=== PATIENT | female | born 1970 | race Caucasian/White ===

== ENCOUNTER → 2016-06-26 | Outpatient (CLI) | payer BC ==
--- NOTE | 2016-06-26 19:07 | WOUNDPNF ---
DATE 06/26/2016 HISTORY This patient underwent incision and drainage of a very large subcutaneous abscess at the right upper back by Dr. Hairston on 06/12/2016. The patient did initially have a wound VAC applied at this open wound. The insurance company did deny use of the wound VAC for the patient. The wound VAC was therefore removed at the office visit on 06/23/2016. Some Hydrofera Blue Classic Antibacterial Foam dressing was placed into the wound at that time. A 4 inch x 4 inch (10.2 cm x 10.2 cm) piece of Hydrofera Blue Classic Antibacterial Foam dressing was placed in the wound at that time. This was covered with a Mepilex dressing. The patient comes back to [facility] today for a dressing change. PHYSICAL EXAMINATION BACK: The patient does have a large transversely oriented open wound at the right upper back. This wound is 8.6 cm long in a hhryw-pf-axvb direction. The wound is 0.9 cm wide in a bfxhjdpo-jv-atffvpmw direction. The wound is 3.2 cm deep today. There is healthy red granulation tissue at most of the open surface of the wound. There is some white devitalized tissue at about 5% of the wound at the subcutaneous tissue level. VITAL SIGNS: Temperature is 96.7 degrees. Blood pressure is 162/93. Pulse is 85. Weight is 250 pounds. IMPRESSION Large open wound at right upper back following incision and drainage of large subcutaneous abscess on 06/12/2016. TREATMENT The Mepilex and Hydrofera Blue Classic Antibacterial Foam dressings were removed at the open wound at the right upper back today by [facility] nurses. Wound assessment was performed by Dr. Hairston. Some EMLA Cream was applied to the open wound for topical anesthesia. Sharp excisional debridement of nonviable white devitalized tissue at the subcutaneous tissue level was then performed by Dr. Hairston. This was sharp excisional debridement performed by Dr. Hairston with a dermal curette. This sharp excisional debridement with a dermal curette was performed at about 5% of the open surface of the wound. This did result in some bleeding which was controlled with application of direct pressure. Satisfactory hemostasis was achieved. Instructions for ongoing care were then provided by Dr. Hairston. The [facility] nurses then placed more of the Hydrofera Blue Classic Antibacterial Foam dressing into the wound and covered this with some Mepilex dressing. PLAN 1. The patient will return back to [facility] again on 06/30/2016 for another dressing change. 2. The patient will return back to [facility] for another dressing change as well as assessment of the wound again by Dr. Hairston on 07/03/2016. ROSITA
== END ==
LOC: NWCC 14:15
PROVIDERS: ATTEND Surgery
DX: T81.4XXA Infection following a procedure, initial encounter (principal); Y83.8 Other surgical procedures as the cause of abnormal reaction of the patient, or of later complication, without mention of misadventure at the time of the procedure; B96.89 Other specified bacterial agents as the cause of diseases classified elsewhere
CPT/HCPCS: 11042; A6209; A6210

== ENCOUNTER → 2016-06-30 | Outpatient (CLI) | payer BC | LOC: NWCC 09:14 | PROVIDERS: ATTEND Surgery | DX: T81.4XXA Infection following a procedure, initial encounter (principal); Y83.8 Other surgical procedures as the cause of abnormal reaction of the patient, or of later complication, without mention of misadventure at the time of the procedure; B96.89 Other specified bacterial agents as the cause of diseases classified elsewhere; I10 Essential (primary) hypertension ==

== ENCOUNTER → 2016-07-03 | Outpatient (CLI) | payer BC ==
--- NOTE | 2016-07-04 08:25 | WOUNDPNF ---
DATE 07/03/2016 HISTORY This patient underwent incision and drainage of a very large subcutaneous abscess at the right upper back by Dr. Hairston on 06/12/2016. The patient did initially have a wound VAC applied to this open wound. The insurance company did deny use of the wound VAC for the patient. The wound VAC was therefore removed at the [facility] visit on 06/23/2016. The patient has had dressing changes at the wound performed with Hydrofera Blue Classic antibacterial foam dressing covered with Mepilex dressing since 06/23/2016. The patient does come in for a [facility] visit today for a dressing change. PHYSICAL EXAMINATION VITAL SIGNS: Blood pressure is 151/84. Temperature is 97.2 degrees. Pulse is 60. Weight is 250 pounds. BACK: The patient does have a large transversely oriented open wound at the right upper back. This wound is 8.2 cm long in a sxhde-sv-jiet direction. The wound is 1.2 cm wide in a zfhsdvgc-cw-rtncquax direction. The wound is 2.5 cm deep today. There is healthy red granulation tissue at most of the open surface of the wound. There is some white devitalized tissue at about 10% of the subcutaneous tissue level of the open wound. IMPRESSION Large open wound at right upper back following incision and drainage of large subcutaneous abscess on 06/12/2015. TREATMENT The Mepilex and Hydrofera Blue Classic antibacterial foam dressings were removed at the open wound at the right upper back today by [facility] nurses. Wound assessment was performed by Dr. Hairston. Sharp excisional debridement of nonviable white devitalized tissue at the subcutaneous tissue level was then performed by Dr. Hairston. This was sharp excisional debridement performed by Dr. Hairston with a dermal curette. This sharp excisional debridement with a dermal curette was performed at about 10% of the open surface of the wound. This did result in some bleeding which was controlled with application of direct pressure. Satisfactory hemostasis was achieved. Instructions for ongoing care were then provided by Dr. Hairston. The [facility] nurses then placed more of the Hydrofera Blue Classic antibacterial foam dressing into the wound and covered this with some Mepilex dressing. PLAN 1. Continue dressing changes with Hydrofera Blue Classic antibacterial foam dressing covered with Mepilex dressings. We will reapply with the insurance company for use of the wound VAC again after 30 days of treatment with failure of the wound to heal after 30 days. 2. The patient will return back to [facility] again on 07/07/2016 for another dressing change. 3. The patient will then return back to [facility] again for another dressing change as well as assessment of the wound again by Dr. Hairston on 2016. ROSITA
== END ==
LOC: NWCC 14:09
PROVIDERS: ATTEND Surgery
DX: T81.4XXA Infection following a procedure, initial encounter (principal); Y83.8 Other surgical procedures as the cause of abnormal reaction of the patient, or of later complication, without mention of misadventure at the time of the procedure; B96.89 Other specified bacterial agents as the cause of diseases classified elsewhere
CPT/HCPCS: 99213; A6209

== ENCOUNTER → 2016-07-07 | Outpatient (CLI) | payer BC | LOC: NWCC 14:14 | PROVIDERS: ATTEND Surgery | DX: T81.4XXA Infection following a procedure, initial encounter (principal); Y83.8 Other surgical procedures as the cause of abnormal reaction of the patient, or of later complication, without mention of misadventure at the time of the procedure; B96.89 Other specified bacterial agents as the cause of diseases classified elsewhere ==

== ENCOUNTER → 2016-07-10 | Outpatient (CLI) | payer BC ==
[~2016-07-10] MED LIST: SILVER NITRATE APPLICATOR TOP ONE
--- NOTE | 2016-07-10 20:42 | WOUNDPNF ---
DATE 07/10/2016 HISTORY This patient underwent incision and drainage of a very large subcutaneous abscess at the right upper back by Dr. Hairston on 06/12/2016. The patient did initially have a wound VAC applied to this open wound. The insurance company did deny use of the wound VAC for the patient. The wound VAC was therefore removed at [facility] on 06/23/2016. The patient then had dressing changes at the wound performed from 06/23/2016 up until today with Hydrofera Blue Classic Antibacterial Foam Dressing covered with Mepilex dressing. The insurance company has now approved use of the wound VAC so the patient can start using the wound VAC again. PHYSICAL EXAMINATION BACK: The patient does have a transversely oriented open wound at the right upper back. There is no necrotic tissue or purulence at the wound. The patient does have skin growing deep down into the subcutaneous tissue level around all sides of the wound. The skin is growing down deep into the wound well below the level of the surrounding skin on all sides. When the open portion of the wound is measured not including the area where skin is growing down into the subcutaneous tissue level, the wound appears to be 5.8 cm long in a flqel-ma-eqda direction, 0.8 cm wide in a nkwxdzwu-oo-iskptkls direction and 1.8 cm deep. This was prior to any debridement today. IMPRESSION Large open wound at right upper back following incision and drainage of a large subcutaneous abscess on 06/12/2016. TREATMENT The Mepilex and Hydrofera Blue Classic Antibacterial Foam dressings were removed at the open wound at the right upper back today by [facility] nurses. Wound assessment was performed by Dr. Hairston. All of this new epidermis which was growing down over the subcutaneous tissue deep down into the subcutaneous tissue level on all sides of the wound was removed with sharp excisional debridement by Dr. Hairston with a dermal curette. EMLA Cream was first applied to the open wound for a while before this was started to produce topical anesthesia. After this, Dr. Hairston did use a dermal curette to remove all of the skin which was growing down deep into the subcutaneous tissue level on all sides of the wound so this wound will have a normal contour after it heals and not have a deep hole at the back lined with skin. This sharp excisional debridement with a dermal curette did produce quite a bit of bleeding. This bleeding was controlled with chemical cauterization with silver nitrate sticks. Satisfactory hemostasis was achieved. Instructions for ongoing care were then provided by Dr. Hairston. The wound was measured after all this debridement of skin growing down into the subcutaneous tissue level. The measurements after debridement showed that the wound was 7.5 cm long in a wutbh-rs-vxyv direction, 1.5 cm wide in a dydbebmw-ks-fmxhdbao direction and 1.6 cm deep. The [facility] nurses did then apply the wound VAC dressing to this open wound. Negative pressure for a wound VAC was set at 125 mmHg. PLAN 1. Continue negative pressure therapy to open wound at right upper back with a wound VAC. 2. Return back to [facility] [place] for a wound VAC dressing change again on 07/14/2016. 3. The patient will return back to [facility] for another wound VAC dressing change again on 07/17/2016. The wound will be reassessed by Dr. Hairston again at that time. ROSITA
== END ==
LOC: NWCC 14:23
PROVIDERS: ATTEND Surgery
DX: T81.4XXA Infection following a procedure, initial encounter (principal); Y83.8 Other surgical procedures as the cause of abnormal reaction of the patient, or of later complication, without mention of misadventure at the time of the procedure; B96.89 Other specified bacterial agents as the cause of diseases classified elsewhere
CPT/HCPCS: 11042

== ENCOUNTER → 2016-07-14 | Outpatient (CLI) | payer BC | LOC: NWCC 10:48 | PROVIDERS: ATTEND Surgery | DX: T81.4XXA Infection following a procedure, initial encounter (principal); Y83.8 Other surgical procedures as the cause of abnormal reaction of the patient, or of later complication, without mention of misadventure at the time of the procedure; B96.89 Other specified bacterial agents as the cause of diseases classified elsewhere | CPT/HCPCS: 97605 ==

== ENCOUNTER → 2016-07-17 | Outpatient (CLI) | payer BC ==
--- NOTE | 2016-07-18 12:26 | WOUNDPNF ---
DATE 07/17/2016 HISTORY This patient underwent incision and drainage of a very large subcutaneous abscess at the right upper back by Dr. Hairston on 06/12/2016. She has an open wound at the incision and drainage site. The patient has a wound V.A.C. applied to this open wound at this time. PHYSICAL EXAMINATION BACK: The patient does have a transversely oriented open wound at the right upper back. There is no necrotic tissue or purulence at the wound. The patient does have some skin growing down into the subcutaneous tissue level at about 20% of the open surface of the wound. This is skin growing down to the base of the wound deep to the level of the skin at the subcutaneous tissue level. The wound is 6.5 cm long in a taqum-qj-ucvo direction. The wound is 0.8 cm wide in a superior-to -inferior direction. The wound is 1 cm deep today. IMPRESSION Large open wound at right upper back following incision and drainage of a large subcutaneous abscess on 06/12/2016. TREATMENT The wound V.A.C. was removed today from the wound at the right upper back by [facility] nurses. EMLA cream was applied to the open wound for a while to produce topical anesthesia. Wound assessment was then performed by Dr. Hairston. Dr. Hairston did use a dermal curette to remove all the areas where skin was growing deep down into the subcutaneous tissue level. This was sharp excisional debridement with a dermal curette at about 20% of the surface of the open wound today. This sharp excisional debridement did produce bleeding which was controlled by chemical cauterization with silver nitrate sticks. Satisfactory hemostasis was achieved. Instructions for ongoing care were then provided by Dr. Hairston. It was thought that this debridement of the skin which was growing deep down into the subcutaneous tissue level would allow the wound to heal in a way that would produce a normal contour after it heals and prevent the patient from having a deep hole at the back lined with skin. [facility] nurses did apply a new wound V.A.C. dressing to the open wound. Negative pressure for the wound V.A.C. is set at 150 mmHg. PLAN 1. Continue negative pressure therapy to open wound at right upper back with wound V.A.C. at 150 mmHg negative pressure. 2. Return back to [facility] for another wound V.A.C. dressing change again on 07/21/2016. 3. The patient will return back to [facility] for another wound V.A.C. dressing change again on 07/24/2016. The wound will be reassessed by Dr. Hairston again at that time. ROSITA
== END ==
LOC: NWCC 14:13
PROVIDERS: ATTEND Surgery
DX: T81.4XXA Infection following a procedure, initial encounter (principal); Y83.8 Other surgical procedures as the cause of abnormal reaction of the patient, or of later complication, without mention of misadventure at the time of the procedure; B96.89 Other specified bacterial agents as the cause of diseases classified elsewhere
CPT/HCPCS: 11042; 97605

== ENCOUNTER → 2016-07-21 | Outpatient (CLI) | payer BC | LOC: NWCC 08:06 | PROVIDERS: ATTEND Surgery | DX: T81.4XXA Infection following a procedure, initial encounter (principal); B96.89 Other specified bacterial agents as the cause of diseases classified elsewhere; Y83.8 Other surgical procedures as the cause of abnormal reaction of the patient, or of later complication, without mention of misadventure at the time of the procedure | CPT/HCPCS: 97605 ==

== ENCOUNTER → 2016-07-24 | Outpatient (CLI) | payer BC ==
--- NOTE | 2016-07-24 18:42 | WOUNDPNF ---
DATE 07/24/2016 HISTORY This patient underwent incision and drainage of a very large subcutaneous abscess at the right upper back by Dr. Hairston on 06/12/2016. She has an open wound at the incision and drainage site. The patient has a wound V.A.C. applied to this open wound at this time. PHYSICAL EXAMINATION BACK: The patient does have a transversely oriented open wound at the right upper back. There is no necrotic tissue or purulence at the wound. The patient does have some skin growing down into the subcutaneous tissue level at about 5% of the open surface of the wound. The wound is 6 cm long in a zpvht-ot-jrcz direction. The wound is 0.7 cm wide in a obfejzxj-mp-vfqpqwas direction. The wound is 0.7 cm deep today. IMPRESSION Large open wound at right upper back following incision and drainage of a large subcutaneous abscess on 06/12/2016. TREATMENT The wound V.A.C. was removed today from the wound at the right upper back by [facility] nurses. Wound assessment was performed by Dr. Hairston. Dr. Hairston did use a dermal curette to remove the area where skin was growing down into the subcutaneous tissue level. This was sharp excisional debridement with a dermal curette at about 5% of the surface of the open wound today at the subcutaneous tissue level. This was done to remove the new epithelium which was growing down the sides of the wound into the subcutaneous tissue level. This sharp excisional debridement did produce bleeding, which was controlled by chemical cauterization with silver nitrate sticks. Satisfactory hemostasis was achieved. Instructions for ongoing care were provided by Dr. Hairston. It was thought that this debridement of the skin which was growing down into the subcutaneous tissue level would allow the wound to heal in a way that would produce a normal contour after it heals and prevent the patient from having a deep hole at the back lined with skin. [facility] nurses did then apply a new wound V.A.C. dressing to the open wound. Negative pressure for the wound V.A.C. was set at 150 mmHg. PLAN 1. Continue negative-pressure therapy at open wound at right upper back with wound V.A.C. at 150 mmHg negative pressure. 2. Return back to [facility] again for another wound V.A.C. dressing change on 07/28/2016. 3. The patient will return back to [facility] for another wound V.A.C. dressing change again on 07/31/2016. The wound will be reassessed by Dr. Hairston again at that time. ROSITA
== END ==
LOC: NWCC 14:09
PROVIDERS: ATTEND Surgery
DX: T81.4XXA Infection following a procedure, initial encounter (principal); Y83.8 Other surgical procedures as the cause of abnormal reaction of the patient, or of later complication, without mention of misadventure at the time of the procedure; B96.89 Other specified bacterial agents as the cause of diseases classified elsewhere
CPT/HCPCS: 97597

== ENCOUNTER → 2016-07-28 | Outpatient (CLI) | payer BC | LOC: NWCC 08:32 | PROVIDERS: ATTEND Surgery | DX: T81.4XXA Infection following a procedure, initial encounter (principal); Y83.9 Surgical procedure, unspecified as the cause of abnormal reaction of the patient, or of later complication, without mention of misadventure at the time of the procedure; B96.89 Other specified bacterial agents as the cause of diseases classified elsewhere; E11.8 Type 2 diabetes mellitus with unspecified complications | CPT/HCPCS: 97605 ==

== ENCOUNTER → 2016-07-31 | Outpatient (CLI) | payer BC ==
--- NOTE | 2016-08-01 09:48 | WOUNDPNF ---
DATE 07/31/2016 HISTORY This patient underwent incision and drainage of a very large subcutaneous abscess at the right upper back by Dr. Hairston on 06/12/2016. She has an open wound at the incision and drainage site. The patient has had a wound V.A.C. applied to this open wound up until this time. PHYSICAL EXAMINATION VITAL SIGNS: Blood pressure is 176/92. Pulse is 93. Temperature is 96 degrees. Respiratory rate is 18. BACK: The patient does have a transversely oriented open wound at the right upper back. There is no necrotic tissue or purulence at the wound. The patient does have 100% of the open surface of the wound consisting of healthy red granulation tissue. The wound is 4.7 cm long in a itmcx-xl-iqgd direction. The wound is 0.4 cm wide in a mmujcmds-ih-xuswkcmr direction. The wound is 0.3 cm deep today. IMPRESSION Large open wound at right upper back following incision and drainage of a large subcutaneous abscess on 06/12/2016. TREATMENT The wound V.A.C. was removed today at the wound at the right upper back by [facility] nurses. Wound assessment was performed by Dr. Hairston. No debridement of the wound was needed today. Instructions for ongoing care were provided by Dr. Hairston. [facility] nurses did then apply some Jena and Mepilex dressings to the open wound. PLAN 1. Discontinue negative pressure therapy with wound V.A.C.. 2. Dressing changes at open wound with Jena and Mepilex wound care dressings every three days. The patient will come back to [facility] for these dressing changes. 3. The patient will come back for a dressing change at [facility] again on 08/07/2016 and the wound will be reassessed by Dr. Hairston again at that time. ROSITA
== END ==
LOC: NWCC 14:10
PROVIDERS: ATTEND Surgery
DX: T81.4XXA Infection following a procedure, initial encounter (principal); Y83.8 Other surgical procedures as the cause of abnormal reaction of the patient, or of later complication, without mention of misadventure at the time of the procedure; B96.89 Other specified bacterial agents as the cause of diseases classified elsewhere
CPT/HCPCS: 99213; A6021; A6210

== ENCOUNTER → 2016-08-04 | Outpatient (CLI) | payer BC | LOC: NWCC 08:06 | PROVIDERS: ATTEND Surgery | DX: T81.4XXA Infection following a procedure, initial encounter (principal); Y83.8 Other surgical procedures as the cause of abnormal reaction of the patient, or of later complication, without mention of misadventure at the time of the procedure; B96.89 Other specified bacterial agents as the cause of diseases classified elsewhere ==

== ENCOUNTER → 2016-08-07 | Outpatient (CLI) | payer BC ==
--- NOTE | 2016-08-08 13:22 | WOUNDPNF ---
DATE 08/07/2016 HISTORY This patient underwent incision and drainage of a very large subcutaneous abscess at the right upper back by Dr. Hairston on 06/12/2016. She has an open wound at the incision and drainage site which has slowly been healing closed since then. She has received treatment at [facility] since the time of the procedure performed on 06/12/2016. PHYSICAL EXAMINATION BACK: The patient does have an open wound at the right upper back which is nearly completely healed closed at this time. The patient has a transversely oriented scar at this area. The only remaining open area is a 0.1 cm x 0.3 cm open area. There is a little bit of hypergranulation tissue at this tiny remaining open area. This is at the lateral end of the wound. IMPRESSION Open wound at right upper back following incision and drainage of a large subcutaneous abscess on 06/12/2016. TREATMENT The Mepilex wound care dressings which were applied at the last [facility] visit were removed today by [facility] nurses. Wound assessment was performed by Dr. Hairston. The hypergranulation tissue which was projecting up above the level of normal skin was cauterized with a silver nitrate stick today by Dr. Hairston. Instructions for ongoing care were then provided by Dr. Hairston. The [facility] nurses did then apply a Allevyn Classic adhesive wound care dressing to the remaining open area at the wound. PLAN 1. The Allevyn wound care dressing can be kept on for the next 5-7 days. 2. An appointment is made for the patient to come back to [facility] again on 08/14/2016 for reassessment of the wound by Dr. Hairston again at that time. 3. I did today give the patient a written letter stating that she can return back to work on 08/18/2016 without restrictions. This is a return to work letter for the employer of this patient. ROSITA
== END ==
LOC: NWCC 14:08
PROVIDERS: ATTEND Surgery
DX: T81.4XXA Infection following a procedure, initial encounter (principal); Y83.8 Other surgical procedures as the cause of abnormal reaction of the patient, or of later complication, without mention of misadventure at the time of the procedure; B96.89 Other specified bacterial agents as the cause of diseases classified elsewhere
CPT/HCPCS: 17250

== ENCOUNTER → 2016-08-14 | Outpatient (CLI) | payer BC ==
--- NOTE | 2016-08-15 09:50 | WOUNDPNF ---
DATE 08/14/2016 HISTORY This patient underwent incision and drainage of a very large subcutaneous abscess at the right upper back by Dr. Hairston on 06/12/2016. She did have an open wound at the incision and drainage site which has gradually been healing closed since then with treatment at [facility]. PHYSICAL EXAMINATION BACK: The previous open wound at the right upper back is completely healed closed. There is a transversely oriented scar where this open wound had been located. The wound is now healed completely closed. IMPRESSION Complete healing of a large open wound at right upper back following incision and drainage of a large subcutaneous abscess on 06/12/2016. TREATMENT The dressings were removed at the wound at the right upper back by [facility] nurses. Wound assessment was performed by Dr. Hairston. Instructions for ongoing care were provided by Dr. Hairston. It was not necessary to apply any further dressings to this wound at the right upper back at this time since it is completely healed. PLAN No further routine followup visits at [facility] are scheduled. Follow up jigar BECKER
== END ==
LOC: NWCC 14:18
PROVIDERS: ATTEND Surgery
DX: T81.4XXA Infection following a procedure, initial encounter (principal); B96.89 Other specified bacterial agents as the cause of diseases classified elsewhere; Y83.8 Other surgical procedures as the cause of abnormal reaction of the patient, or of later complication, without mention of misadventure at the time of the procedure